=== PATIENT | female | born 1990 | race African-American/Black ===

== ENCOUNTER 2021-04-09 04:24 | Day surgery (SDC) | payer OTHER ==
[2021-04-04 14:00] VITALS: BMI 29.7
[2021-04-09] MEDS ORDERED: LIDOCAINE HCL 1%, 10 MG/ML (20ML VIAL) ONE (11:40)
[2021-04-09] MEDS ORDERED: PROPOFOL 20 ML ONE (12:07)
[2021-04-09] MEDS ORDERED: MIDAZOLAM HCL 2 MG/2 ML SINGLE DOSE VIAL ONE (12:07)
[2021-04-09] MEDS ORDERED: ceFAZolin 2 GRAM PREMIX BAG IVPB ONE (12:24)
[2021-04-09] MEDS ORDERED: LIDOCAINE HCL 1%, 10 MG/ML (20ML VIAL) NR ONE (12:26)
[2021-04-09] MEDS ORDERED: BACITRACIN 15 GM TUBE TOPICAL OINTMENT ONE (12:37)
[2021-04-09] MEDS ORDERED: BACITRACIN 15 GM TUBE TOPICAL OINTMENT TP ONE (12:40)
[2021-04-09] MEDS ORDERED: ACETAMINOPHEN INJECTION 100 ML IVPB ONE (13:22)
[2021-04-09] MEDS ORDERED: ACETAMINOPHEN 1000 MG/100 ML VIAL IVPB ONE (14:21)
[2021-04-09] MEDS ORDERED: ONDANSETRON 4 MG/2 ML VIAL IVPUSH PRN (14:21)
[2021-04-09 14:26] VITALS: TEMP 97.1
[2021-04-09] MEDS ORDERED: LACTATED RINGERS SOLUTION 1,000 ML IV SCH (14:30)
[2021-04-09 15:47] VITALS: BP 126/87; PULSE 60
== END 2021-04-09 15:30 | disposition home or self-care (01) ==
LOC: JASU-SURG 04:24
PROVIDERS: ATTEND Surgery
PROC: 0HBU0ZX Excision of Left Breast, Open Approach, Diagnostic (ICD-10-PCS; principal; 2021-04-09 11:00)
DX: D24.2 Benign neoplasm of left breast (principal)
CPT/HCPCS: 81025; 94760; J0131

== ENCOUNTER 2021-08-31 12:37 | Emergency (ER) | payer OTHER ==
[2021-08-31 12:46] VITALS: BP 136/86; PULSE 85; TEMP 98.8; BMI 28.1
[2021-08-31] MEDS ORDERED: KETOROLAC TROMETHAMINE 30 MG/1 ML VIAL IM ONE (13:18)
[2021-08-31] MEDS ORDERED: KETOROLAC TROMETHAMINE 30 MG/1 ML VIAL ONE (13:19)
== END 2021-08-31 15:28 | disposition home or self-care (01) ==
LOC: JER 12:37
PROC: 3E0233Z Introduction of Anti-inflammatory into Muscle, Percutaneous Approach (ICD-10-PCS; principal; 2021-08-31)
DX: K08.89 Other specified disorders of teeth and supporting structures (principal); K02.9 Dental caries, unspecified
CPT/HCPCS: 76536-TC; 99284-25